=== PATIENT | female | born 1980 | race American Indian/Alaskan Native ===

== ENCOUNTER 2020-09-26 14:46 | Emergency (ER) | payer OTHER ==
[2020-09-26 15:10] VITALS: BP 123/91
--- NOTE | 2020-09-26 15:13 | Event Note ---
ED Screening Note ED Screening Note: upper abd pain that began a week ago had n/v but resolved states this morning had one episode of black stool states she had been constipated over the last 3-4 days states she has an appointment with a PCP tomorrow PMHx HTN no allergies to meds states she was taking 3-4 Goodys powder a day This initial assessment/diagnostic orders/clinical plan/treatment(s) is/are subject to change based on patients health status, clinical progression and re- assessment by fellow clinical providers in the ED. Further treatment and workup at subsequent clinical providers discretion. Patient/guardian urged not to elope from the ED as their condition may be serious if not clinically assessed and managed. Initial orders include: labs, UA
[2020-09-26 15:42] LABS: Basophils # (Auto) 0.1 K/mm3 (0.0-0.1); Basophils % (Auto) 0.7 % (0.0-1.8); Eosinophils % (Auto) 0.3 % (0.0-4.3); Hematocrit 35.7 % (30.3-42.9); Hemoglobin 12.3 gm/dl (10.1-14.3); Lymphocytes # (Auto) 1.4 K/mm3 (1.2-5.4); Lymphocytes % (Auto) 16.8 % (13.4-35.0); Mean Corpuscular HGB Conc 35 % (30-34); Mean Corpuscular Volume 100 fl (79-97); Monocytes # (Auto) 0.6 K/mm3 (0.0-0.8); Monocytes % (Auto) 7.1 % (0.0-7.3); Platelet Count 332 K/mm3 (140-440); Red Blood Count 3.59 M/mm3 (3.65-5.03); Red Cell Distribution Width 12.2 % (13.2-15.2)
[2020-09-26 15:51] LABS: INR 0.91 (0.87-1.13)
[2020-09-26 15:52] LABS: Partial Thromboplastin Time 26.7 Sec. (24.2-36.6)
[2020-09-26 15:59] LABS: Alanine Aminotransferase 10 units/L (7-56); Blood Urea Nitrogen 17 mg/dL (7-17); Calcium 9.8 mg/dL (8.4-10.2); Hemolysis Index 8
[2020-09-26 16:02] LABS: BUN/Creatinine Ratio 34
[2020-09-26 16:02] LABS: Bilirubin,Urine NEG (Negative); Blood,Urine NEG (Negative); Color,Urine Yellow (Yellow); Mucus,Urine FEW /HPF; Protein,Urine <15 mg/dL mg/dL (Negative); Urobilinogen,Urine < 2.0 mg/dL (<2.0)
[2020-09-26 16:07] LABS: WBC,Urine < 1.0 /HPF (0.0-6.0)
== END 2020-09-26 19:59 | disposition left against medical advice (07) ==
LOC: ED 14:46
DX: M54.9 Dorsalgia, unspecified (principal); Z53.21 Procedure and treatment not carried out due to patient leaving prior to being seen by health care provider
CPT/HCPCS: 36415; 80053; 81001; 83690; 85025; 85610; 85730

== ENCOUNTER 2021-12-11 17:14 | Emergency (ER) | payer BC | END 2021-12-12 03:00 | disposition left against medical advice (07) | LOC: ED 17:14 | DX: T78.40XA Allergy, unspecified, initial encounter (principal); Z53.21 Procedure and treatment not carried out due to patient leaving prior to being seen by health care provider; X58.XXXA Exposure to other specified factors, initial encounter ==